=== PATIENT | female | born 1960 | race Caucasian/White ===

== ENCOUNTER → 2017-05-22 | Outpatient (CLI) | payer OTHER ==
[~2017-05-22] MED LIST: OMEP10CA4 PO
--- NOTE | 2017-05-22 19:33 | Diagnostic Imaging Report ---
Bilateral screening mammogram 2D views with tomosynthesis The current study was also evaluated with a Computer Aided Detection (CAD) system. INDICATION: Screening. No current complaints stated on the questionnaire. COMPARISON: 05/17/2016. FINDINGS: The breasts are composed of extremely dense parenchyma which may decrease mammographic sensitivity. There are punctate calcifications seen. Allowing for technique and positional differences, no suspicious change is seen. IMPRESSION: Dense breasts with no definite change. ACR BI-RADS Category 2: Benign findings. Result letter will be mailed to the patient. Note: At least 10% of breast cancer is not imaged by mammography. Dictated by: Dictated on workstation # [id number]
== END ==
LOC: RAD 07:05
PROVIDERS: ATTEND Obstetrics & Gynecology
DX: Z12.31 Encounter for screening mammogram for malignant neoplasm of breast (principal)
CPT/HCPCS: 77067

== ENCOUNTER → 2018-05-26 | Outpatient (CLI) | payer OTHER ==
--- NOTE | 2018-05-26 12:04 | Diagnostic Imaging Report ---
INDICATION: Routine screening. Comparison is made with prior mammograms from 05/22/2017 and 05/17/2016. 2-D and 3-D bilateral screening mammography was performed. The current study was also evaluated with a Computer Aided Detection (CAD) system. FINDINGS: Both breasts demonstrate marked parenchymal heterogeneity and increased density, limiting the sensitivity of mammography. Occasional benign-appearing calcifications are noted bilaterally. No malignant-appearing microcalcifications are seen. No dominant mass is detected. The axillae are unremarkable. IMPRESSION: No mammographic features suspicious for malignancy are identified. ACR BI-RADS Category 2: Benign findings. Result letter will be mailed to the patient. Note: At least 10% of breast cancer is not imaged by mammography. Dictated by: Dictated on workstation # [id number]
== END ==
LOC: RAD 07:24
PROVIDERS: ATTEND Obstetrics & Gynecology
DX: Z12.31 Encounter for screening mammogram for malignant neoplasm of breast (principal)
CPT/HCPCS: 77067

== ENCOUNTER → 2019-05-31 | Outpatient (CLI) | payer OTHER ==
--- NOTE | 2019-05-31 11:04 | Diagnostic Imaging Report ---
INDICATION: Routine screening. COMPARISON: 05/26/2018 and 05/22/2017. TECHNIQUE: 2D and 3D bilateral screening mammography was performed with CAD. FINDINGS: Both breasts are heterogeneously dense, limiting the sensitivity of mammography. The overall parenchymal pattern is stable. No mass or malignant appearing microcalcifications are seen. There are benign calcifications. The axillae are unremarkable. IMPRESSION: No mammographic features suspicious for malignancy are identified. ACR BI-RADS Category 2: Benign findings. Result letter will be mailed to the patient. Note: At least 10% of breast cancer is not imaged by mammography. Dictated by: Dictated on workstation # [id number]
== END ==
LOC: RAD 07:14
PROVIDERS: ATTEND Obstetrics & Gynecology
DX: Z12.31 Encounter for screening mammogram for malignant neoplasm of breast (principal)
CPT/HCPCS: 77067

== ENCOUNTER 2019-11-01 05:38 | Outpatient (CLI) | payer OTHER ==
[~2019-11-01] VITALS: Ht 177 cm; Wt 70.4 kg
[2019-11-01] MEDS ORDERED: ATOR10TA66 PO (11:58)
== END 2019-11-01 12:05 | disposition home or self-care (01) ==
LOC: PREOP 05:38
PROVIDERS: ATTEND Internal Medicine
DX: Z01.818 Encounter for other preprocedural examination (principal)

== ENCOUNTER 2019-11-05 07:02 | Day surgery (SDC) | payer OTHER ==
--- NOTE | 2019-10-18 07:03 | HISTORY AND PHYSICAL ---
DATE OF SERVICE: COLONOSCOPY HISTORY AND PHYSICAL HISTORY OF PRESENT ILLNESS: The patient is a 59-year-old white female seen in the office on 10/11/2019 to be evaluated for screening colonoscopy. She had another colonoscopy done 11 years ago for which she reports no abnormalities were noted. She believes that her mother had colon polyps that were removed last year at the age of 78, she is 78 with no reported significant health problems. The patient reports occasional bright red blood on the toilet paper, very small volume that she has attributed to hemorrhoids. She has seen no blood in the stool. She denies bowel habit change, constipation, diarrhea, abdominal pain or change in weight. PAST MEDICAL HISTORY: Significant for hyperlipidemia with no known history of vascular disease. SOCIAL HISTORY: She has no past smoking history and no significant alcohol intake. She currently is a teacher at [employer]. PHYSICAL EXAMINATION: GENERAL: Reveals a normal weight white female, alert, oriented, well kempt in no acute distress. VITAL SIGNS: Height 5 feet 8.5 inches tall, 162 pounds with blood pressure 138/70. Home blood pressure log reveals lower blood pressures from this with no elevation. Heart rate 70 and regular. HEENT: Unremarkable. She has a Mallampati 1. Sclerae are nonicteric. CHEST: Clear to auscultation. CARDIOVASCULAR: Revealed a regular rate and rhythm without murmur, S3 or S4. ABDOMEN: Soft, supple without mass, organomegaly or tenderness. EXTREMITIES: Reveal no cyanosis, clubbing or edema. RECTAL: Deferred at the time of colonoscopy. ASSESSMENT AND PLAN: The patient is set up for screening colonoscopy on 05 of November. Prep instructions with Suprep kit were given and questions were answered. She was scheduled for regular follow up in 6 months at which time we will obtain a chemistry and lipid panel for medication and hyperlipidemia monitoring. Job ID: [id number] DocumentID: [id number] Dictated Date: 10/12/2019 11:15:59 Product Support Consultant Date: 10/12/2019 11:31:31 Dictated By: SIDNEY MCCORMACK MD
[~2019-11-05] VITALS: Ht 177 cm; Wt 70.4 kg
[2019-11-05] VITALS (14 sets, daily range): BP systolic 119–156; BP diastolic 56–90
[~2019-11-05 07:02] MED LIST changes: +ATOR10TA66 PO
[2019-11-05] MEDS ORDERED: D5 LR IV SOLUTION 1,000 ML IV ONE (07:07)
[2019-11-05] MEDS ORDERED: D5 LR IV SOLUTION 1,000 ML IV STA (07:09)
[2019-11-05] MEDS ORDERED: MIDAZOLAM 5 MG/5 ML (VERSED) VIAL IV PRN (07:15)
[2019-11-05] MEDS ORDERED: LIDOCAINE JELLY 2% 6 ML SYRINGE MM PRN (07:15)
[2019-11-05] MEDS ORDERED: fentaNYL INJECTION 100 MCG/2 ML AMP IVP ONE (07:15)
[2019-11-05] MEDS ORDERED: LIDOCAINE JELLY 2% 6 ML SYRINGE ONE (07:23)
[2019-11-05] MEDS ORDERED: MIDAZOLAM 5 MG/5 ML (VERSED) VIAL ONE (07:23)
[2019-11-05] MEDS ORDERED: fentaNYL INJECTION 100 MCG/2 ML AMP ONE (07:23)
--- NOTE | 2019-11-05 10:31 | Pre-Op Note & Conscious Sedat ---
Pre-Operative Progress Note H&P Reviewed The H&P was reviewed, patient examined and no changes noted. Date H&P Reviewed: Nov 05, 2019 Time H&P Reviewed: 07:40 Conscious Sedation Pre-Proced ASA Score 2 For ASA 3 and 4: Consider anesthesia and medical clearance. Also, for patients with a history of failed moderate sedation consider anesthesia. Airway Lungs Heart ASA score ASA 1: a normal healthy patient ASA 2: a patient with a mild systemic disease (mid diabetes, controlled hypertension, obesity ASA 3: a patient with a severe systemic disease that limits activity (angina, COPD, prior Myocardial infarction) ASA 4: a patient with an incapacitating disease that is a constant threat to life (CHF, renal failure) ASA 5: a moribund patient not expected to survive 24 hrs. (ruptured aneurysm) ASA 6: a declared brain- patient whose organs are being harvested. For emergent operations, add the letter E after the classification Mallampati Classification Grade 1 Sedation Plan Analgesia, Amnesia, Plan communicated to team members, Discussed options with patient/fam, Discussed risks with patient/fam The patient is an appropriate candidate to undergo the planned procedure, sedation, and anesthesia. The patient immediately re-assessed prior to indication. SIDNEY MCCORMACK MD Nov 05, 2019 10:31
--- NOTE | 2019-11-05 15:52 | OPERATIVE REPORT ---
DATE OF SERVICE: COLONOSCOPY SUMMARY INDICATION FOR THE PROCEDURE: Screening colonoscopy. DESCRIPTION OF PROCEDURE: The patient was placed in the left lateral decubitus position. Prior to undergoing colonoscopy, digital rectal evaluation was performed. Anal sphincter tone was normal and the perianal reflexes intact. No abnormalities noted on digital inspection of anal canal or distal rectal vault. The colonoscope was then inserted into the rectum and under direct visualization advanced to cecum. The cecum was identified by identification of ileocecal valve and cecal strap. Photographic documentation was obtained. Quality of the prep was good. FINDINGS: There was no evidence for internal or external hemorrhoids and the rectum, sigmoid colon, descending colon, transverse colon, ascending colon and cecum were unremarkable with no evidence for diverticular disease, neoplasia or vascular malformation. ASSESSMENT: Normal colonoscopy to the cecum. We will advocate consideration for repeat screening colonoscopy in 10 years as the patient is not aware of any family history for colon cancer or polyps. I am her primary care physician. Job ID: [id number] DocumentID: [id number] Dictated Date: 11/05/2019 11:59:58 Estate Manager Date: 11/05/2019 15:50:27 Dictated By: SIDNEY MCCORMACK MD
== END 2019-11-05 09:10 | disposition home or self-care (01) ==
LOC: ENDO 07:02
PROVIDERS: ATTEND Internal Medicine
DX: Z12.11 Encounter for screening for malignant neoplasm of colon (principal); E78.5 Hyperlipidemia, unspecified; Z83.71 Family history of colonic polyps

== ENCOUNTER 2020-02-28 09:49 | Outpatient (RCR) | payer OTHER ==
[~2020-02-28] VITALS: Ht 177 cm; Wt 63.6 kg
== END 2020-02-28 15:05 | disposition home or self-care (01) ==
LOC: PREOP 09:49
PROVIDERS: ATTEND Internal Medicine
DX: Z01.818 Encounter for other preprocedural examination (principal); Z11.59 Encounter for screening for other viral diseases
CPT/HCPCS: 87635

== ENCOUNTER → 2020-06-09 | Outpatient (CLI) | payer OTHER ==
--- NOTE | 2020-06-09 12:51 | Diagnostic Imaging Report ---
INDICATION: Routine screening. COMPARISON is made with prior mammogram from 05/31/2019 and 05/26/2018. 2-D and 3-D bilateral screening mammography was performed with CAD. Both breasts are heterogeneously dense, limiting the sensitivity of mammography. The parenchymal pattern is stable. No mass or malignant appearing microcalcifications are seen. Axillae are unremarkable. IMPRESSION: BI-RADS Category 1 No mammographic features suspicious for malignancy are identified. ACR BI-RADS Category 1: Negative. Result letter will be mailed to the patient. Note: At least 10% of breast cancer is not imaged by mammography. Dictated by: Dictated on workstation # [id number]
== END ==
LOC: RAD 07:30
PROVIDERS: ATTEND Internal Medicine
DX: Z12.31 Encounter for screening mammogram for malignant neoplasm of breast (principal); Z20.828 Contact with and (suspected) exposure to other viral communicable diseases
CPT/HCPCS: 77063; 77067

== ENCOUNTER 2020-07-26 05:27 | Outpatient (RCR) | payer OTHER ==
[~2020-07-26] VITALS: Ht 177.8 cm; Wt 66.4 kg
== END 2020-07-26 10:42 | disposition home or self-care (01) ==
LOC: PREOP 05:27
PROVIDERS: ATTEND Internal Medicine
DX: Z01.812 Encounter for preprocedural laboratory examination (principal); Z20.828 Contact with and (suspected) exposure to other viral communicable diseases
CPT/HCPCS: 87635

== ENCOUNTER 2020-07-28 06:56 | Day surgery (SDC) | payer OTHER ==
--- NOTE | 2020-07-25 17:31 | HISTORY AND PHYSICAL ---
DATE OF SERVICE: EGD HISTORY AND PHYSICAL HISTORY OF PRESENT ILLNESS: Whitney rosen is a 60-year-old white female evaluated in the office on 07/24. Reporting difficulty with swallowing solids intermittently. She also has a sensation like mucus is caught in her throat. She has several year history of burning sensation for which she takes antacid therapy several times a week. She has experienced a 16 pound weight loss over the past 8 months that she attributes to increased stress at the workplace. She denies melena or bright red blood per rectum. She denies sore throat as I recall occasionally she will have some choking sensations at night. SOCIAL HISTORY: She has no past smoking history and no significant drinking history, is employed at [employer]. FAMILY HISTORY: She is not aware of any family history for GI tract malignancy. PHYSICAL EXAMINATION: GENERAL: Reveals a thin white female who did not appear to be in acute distress. VITAL SIGNS: Blood pressure 110/80. HEENT: Unremarkable. Mallampati 1 pharyngeal configuration. CHEST: Clear to auscultation. CARDIOVASCULAR: Revealed a regular rate and rhythm without murmur, S3 or S4. ABDOMEN: Soft, supple without mass, organomegaly or tenderness. Bowel sounds positive. No bruits noted. EXTREMITIES: Reveal no cyanosis, clubbing or edema. ASSESSMENT AND PLAN: For further investigation of dysphagia with weight loss. The patient is set up for diagnostic EGD. Further recommendations pending after EGD evaluation. The patient does not normally take aspirin or nonsteroidal medication. We will continue to abstain. Job ID: [id number] DocumentID: [id number] Dictated Date: 07/25/2020 16:59:32 Reel System Operator Date: 07/25/2020 17:31:23 Dictated By: SIDNEY MCCORMACK MD
[~2020-07-28] VITALS: Ht 177.8 cm; Wt 66.4 kg
[2020-07-28] MEDS ORDERED: LACTATED RINGERS 1,000 ML IV ONE (07:06)
[2020-07-28] MEDS ORDERED: LACTATED RINGERS 1,000 ML IV STA (07:11)
[2020-07-28] MEDS ORDERED: HURRICAINE EXT TUBE (BENZOCAINE) XX PRN (07:15)
[2020-07-28] MEDS ORDERED: LIDOCAINE JELLY 2% 6 ML SYRINGE MM PRN (07:15)
[2020-07-28] MEDS ORDERED: proPOfol 200 MG/20 ML (DIPRIVAN) VIAL IV ONE ×2 (07:16→07:20)
[2020-07-28] MEDS ORDERED: MIDAZOLAM 2 MG/2 ML (VERSED) VIAL ONE (07:17)
[2020-07-28 07:29] VITALS: BP 135/71
[2020-07-28] MEDS ORDERED: HURRICAINE EXT TUBE (BENZOCAINE) ONE (07:42)
[2020-07-28] MEDS ORDERED: LIDOCAINE JELLY 2% 6 ML SYRINGE ONE (08:03)
[2020-07-28 08:15] VITALS: BP 90/51
--- NOTE | 2020-07-28 08:18 | Pre-Op Note & Conscious Sedat ---
Pre-Operative Progress Note H&P Reviewed The H&P was reviewed, patient examined and no changes noted. Date H&P Reviewed: Jul 28, 2020 Time H&P Reviewed: 07:40 Conscious Sedation Pre-Proced ASA Score 1 For ASA 3 and 4: Consider anesthesia and medical clearance. Also, for patients with a history of failed moderate sedation consider anesthesia. Airway Lungs Heart ASA score ASA 1: a normal healthy patient ASA 2: a patient with a mild systemic disease (mid diabetes, controlled hypertension, obesity ASA 3: a patient with a severe systemic disease that limits activity (angina, COPD, prior Myocardial infarction) ASA 4: a patient with an incapacitating disease that is a constant threat to life (CHF, renal failure) ASA 5: a moribund patient not expected to survive 24 hrs. (ruptured aneurysm) ASA 6: a declared brain- patient whose organs are being harvested. For emergent operations, add the letter E after the classification Mallampati Classification Grade 2 Sedation Plan Analgesia, Amnesia, Plan communicated to team members, Discussed options with patient/fam, Discussed risks with patient/fam The patient is an appropriate candidate to undergo the planned procedure, sedation, and anesthesia. The patient immediately re-assessed prior to indication. SIDNEY MCCORMACK MD Jul 28, 2020 08:18
[2020-07-28 08:20] VITALS: BP 90/50
[2020-07-28 08:25] VITALS: BP_SYST 104; BP_SYST 93; BP_DIAS 54; BP_DIAS 62
[2020-07-28 08:50] VITALS: BP 123/67
[2020-07-28 08:53] VITALS: BP 123/67
--- NOTE | 2020-07-28 09:42 | Anesthesia-General Post-Op ---
MAC Patient Condition Mental Status/LOC: Same as Preop Cardiovascular: Satisfactory Nausea/Vomiting: Absent Respiratory: Satisfactory Pain: Controlled Complications: Absent Post Op Complications Complications None Follow Up Care/Instructions Patient Instructions None needed. Anesthesiology Discharge Order Discharge Order Patient is doing well, no complaints, stable vital signs, no apparent adverse anesthesia problems. No complications reported per nursing. BESS ESPINOSA CRNA Jul 28, 2020 09:42
--- NOTE | 2020-07-28 19:05 | OPERATIVE REPORT ---
DATE OF SERVICE: EGD SUMMARY I am her primary care physician. EGD is performed for evaluation of dysphagia. DESCRIPTION OF PROCEDURE: The patient was placed in left lateral decubitus position. The endoscope was inserted into the oral cavity and under direct visualization, esophagus was intubated. The endoscope was passed down the esophagus through the stomach into the second portion of the duodenum. Careful inspection was made as the endoscope was withdrawn. The patient tolerated the procedure well. FINDINGS: The posterior pharynx, arytenoid aperture epiglottis and true and false vocal folds were unremarkable to visual inspection. The proximal, mid and distal esophagus were essentially unremarkable. There was a small sliding hiatal hernia present and I could not rule out the possibility of short segment Shearer's. Biopsies were obtained and submitted for histopathology. There was no evidence for ulceration, nodularity or stricture formation. The cardia, fundus, antrum, pylorus, pyloric channel, duodenal bulb and second portion of duodenum were unremarkable to visual inspection with no evidence for enteritis or peptic ulcer disease. ASSESSMENT: Small hiatal hernia was present without evidence for erosive esophagitis. I could not rule out the possibility of short segment Shearer's. Biopsies were obtained and submitted for histopathology. This was otherwise normal EGD. Job ID: [id number] DocumentID: [id number] Dictated Date: 07/28/2020 10:34:59 Paperhanger Date: 07/28/2020 19:05:36 Dictated By: SIDNEY MCCORMACK MD
== END 2020-07-28 09:03 | disposition home or self-care (01) ==
LOC: ENDO 06:56
PROVIDERS: ATTEND Internal Medicine
DX: K21.00 Gastro-esophageal reflux disease with esophagitis, without bleeding (principal); K44.9 Diaphragmatic hernia without obstruction or gangrene; K29.70 Gastritis, unspecified, without bleeding; R63.5 Abnormal weight gain; E78.5 Hyperlipidemia, unspecified; Z79.899 Other long term (current) drug therapy

== ENCOUNTER → 2021-06-11 | Outpatient (CLI) | payer OTHER ==
--- NOTE | 2021-06-11 08:41 | Diagnostic Imaging Report ---
INDICATION: Routine screening. COMPARISON: 06/09/2020 and 05/31/2019. TECHNIQUE: 2D and 3D bilateral screening mammography was performed with CAD. FINDINGS: Both breasts show marked parenchymal heterogeneity and increased density, limiting the sensitivity of mammography. The parenchymal pattern is stable. No mass or malignant-appearing microcalcifications are seen. The axillae are unremarkable. IMPRESSION: No mammographic features suspicious for malignancy are identified. ACR BI-RADS Category 1: Negative. Result letter will be mailed to the patient. Note: At least 10% of breast cancer is not imaged by mammography. Dictated by: Dictated on workstation # [id number]
== END ==
LOC: RAD 07:30
PROVIDERS: ATTEND Obstetrics & Gynecology
DX: Z12.31 Encounter for screening mammogram for malignant neoplasm of breast (principal)
CPT/HCPCS: 77063; 77067

== ENCOUNTER → 2022-06-13 | Outpatient (CLI) | payer OTHER ==
--- NOTE | 2022-06-14 08:52 | Diagnostic Imaging Report ---
3-D bilateral screening mammogram The current study was also evaluated with a Computer Aided Detection (CAD) system. COMPARISON: 05/31/2019, 06/09/2020 and 06/11/2021 At this time there are no current complaints. FINDINGS: The fibroglandular tissue in both breasts is dense. This does limit the sensitivity of this exam. Overall, there does not appear to have been any significant change when compared to the prior study. No primary or secondary sign of malignancy is noted. IMPRESSION: There is no radiographic evidence for malignancy. ACR BI-RADS Category 1 negative. ACR BI-RADS Category 1: Negative. Result letter will be mailed to the patient. Note: At least 10% of breast cancer is not imaged by mammography. Dictated by: Dictated on workstation # [id number]
== END ==
LOC: RAD 07:30
PROVIDERS: ATTEND Nurse Practitioner Family
DX: Z12.31 Encounter for screening mammogram for malignant neoplasm of breast (principal)
CPT/HCPCS: 77063; 77067